=== PATIENT | female | born 1995 | race Caucasian/White ===

== ENCOUNTER 2024-02-29 13:24 | Emergency (ER) | payer MEDICAID ==
[~2024-02-29] VITALS: Ht 172.7 cm; Wt 59.0 kg
[2024-02-29 17:12] VITALS: BP 116/64; PULSE 61; RESP 16; TEMP 97.6; O2SAT 99
== END 2024-02-29 17:09 | disposition home or self-care (01) ==
LOC: ER 13:24
DX: M54.9 Dorsalgia, unspecified (principal)
CPT/HCPCS: 99282